=== PATIENT | female | born 1990 | race Two or more races ===

== ENCOUNTER 2019-07-19 22:12 | Emergency (ER) | payer MEDICAID ==
[~2019-07-19] VITALS: Ht 160 cm; Wt 89.0 kg
[2019-07-20] MEDS ORDERED: HYDROCODONE/ACETAMINOPHEN 5/325MG TABLET PO ONE (00:45)
[2019-07-20 02:29] VITALS: BP 119/79
== END 2019-07-20 02:51 | disposition home or self-care (01) ==
LOC: ER 22:12
DX: S62.522A Displaced fracture of distal phalanx of left thumb, initial encounter for closed fracture (principal); S60.112A Contusion of left thumb with damage to nail, initial encounter; W22.8XXA Striking against or struck by other objects, initial encounter; Y93.89 Activity, other specified; Y92.810 Car as the place of occurrence of the external cause; Y99.8 Other external cause status
CPT/HCPCS: 10140; 73140; 81025; 99283; Z7610